=== PATIENT | female | born 1955 | race Caucasian/White ===

== ENCOUNTER 2017-11-02 14:07 | Outpatient (CLI) | payer OTHER ==
--- NOTE | 2017-11-02 15:39 | Mammography Report ---
DIGITAL DIAGNOSTIC BILATERAL MAMMOGRAM: 11/02/2017 CLINICAL INDICATION: Left lateral pain. TECHNIQUE: Bilateral CC and MLO views, left true lateral view. The patient described the pain as diffuse throughout the entire left lateral hemisphere, so no marker was placed. COMPARISON: The patient's previous mammograms are not available for direct comparison. If they become available, an addendum will be issued. Otherwise, this will serve as a new baseline. FINDINGS: The breasts demonstrate heterogeneously dense fibroglandular parenchyma bilaterally. Coarse and punctate, typically benign calcifications are present. No suspicious masses, clustered microcalcifications, or regions of architectural distortion are identified. IMPRESSION: BENIGN FINDINGS. RECOMMENDATION: ROUTINE ANNUAL SCREENING UNLESS OTHERWISE CLINICALLY INDICATED. BIRADS CATEGORY 2-BENIGN FINDINGS. STANDARD QUALIFYING STATEMENTS: 1. This examination was reviewed with the aid of Computer-Aided Detection (CAD). 2. A negative or benign imaging report should not delay biopsy if clinically suspicious findings are present. Consider surgical consultation if warranted. More than 5% of cancers are not identified by imaging. 3. Dense breasts may obscure an underlying neoplasm. TD: 11/02/2017 15:38
== END 2017-11-02 14:08 | disposition home or self-care (01) ==
LOC: DI 14:07
PROVIDERS: ATTEND Internal Medicine
DX: N64.4 Mastodynia (principal)
CPT/HCPCS: 77066

== ENCOUNTER 2018-02-27 14:31 | Emergency (ER) | payer OTHER ==
[2018-02-27 14:42] VITALS: BP 135/76
== END 2018-02-27 15:00 | disposition left against medical advice (07) ==
LOC: ED 14:31
DX: Z53.21 Procedure and treatment not carried out due to patient leaving prior to being seen by health care provider (principal)

== ENCOUNTER 2018-05-20 08:53 | Outpatient (CLI) | payer OTHER ==
[2018-05-20 09:31] LABS: HGB - HEMOGLOBIN 14.9 g/dL (12.0-16.0); MEAN CORPUSCULAR HEMOGLOBIN 29.8 pg (27.0-31.0); MEAN CORPUSCULAR HGB CONC 34.4 g/dL (32.0-36.0); MEAN CORPUSCULAR VOLUME 86.7 fL (81.0-99.0); MEAN PLATELET VOLUME 7.5 fL (7.9-10.8); RED BLOOD COUNT 5.01 10^6/uL (4.20-5.40); RED CELL DISTRIBUTION WIDTH 14.6 % (12.0-15.0); WHITE BLOOD COUNT 5.8 x10^3/uL (4.8-10.8)
[2018-05-20 09:48] LABS: ALBUMIN 4.7 g/dL (3.2-5.5); ALBUMIN/GLOBULIN RATIO 1.7 (1.0-2.2); BILIRUBIN,TOTAL 0.5 mg/dL (0.2-1.0); CALCIUM 9.7 mg/dL (8.5-10.3); CREATININE 0.6 mg/dL (0.4-1.0); TOTAL PROTEIN 7.4 g/dL (6.7-8.2)
== END 2018-05-20 08:54 | disposition home or self-care (01) ==
LOC: RT 08:53
PROVIDERS: ATTEND Orthopaedic Surgery
DX: Z01.818 Encounter for other preprocedural examination (principal)
CPT/HCPCS: 36415; 80053; 85027; 93005

== ENCOUNTER 2022-06-04 15:06 | Outpatient (CLI) | payer MEDICARE ==
[2022-06-04 20:16] LABS: THYROID STIMULATING HORMONE 0.09 uIU/mL (0.34-5.60)
[2022-06-04 20:18] LABS: FREE T4 (FREE THYROXINE) 0.77 ng/dL (0.58-1.64)
== END 2022-06-04 15:07 | disposition home or self-care (01) ==
LOC: LAB.S 15:06
PROVIDERS: ATTEND Internal Medicine
DX: C73 Malignant neoplasm of thyroid gland (principal); E89.0 Postprocedural hypothyroidism
CPT/HCPCS: 36415; 84439; 84443; 84480